=== PATIENT | male | born 1970 | race Hispanic/Latino ===

== ENCOUNTER → 2018-05-05 | Outpatient (CLI) | payer OTHER ==
--- NOTE | 2018-05-05 13:15 | Diagnostic Imaging Report ---
PROCEDURE:X-RAY ABDOMEN - KUB COMPARISON:None. INDICATIONS:LUMBAR SPINE/PELVIS PAIN FINDINGS: There is a non-obstructed bowel-gas pattern. There are no calcifications projected over the renal shadows, expected course of the ureters or bladder. A moderate volume of stool within the colon. There are no acute osseous abnormalities. The lung bases are clear. CONCLUSION: Moderate volume of stool within the colon. Nonobstructive bowel gas pattern. Lasha Miguel M.D. Dictated by: Lasha Miguel M.D. on 05/05/2018 at 13:20 Electronically approved by: Lasha Miguel M.D. on 05/05/2018 at 13:20
--- NOTE | 2018-05-05 13:23 | Diagnostic Imaging Report ---
Lumbar spine 5 views. Sacrum 2 views HISTORY: Pain. COMPARISON: None available. DISCUSSION: There are five non-rib bearing lumbar vertebral bodies. The alignment of the spine is within normal limits. No displaced fracture or compression deformity is identified. Degenerative disc disease at L4-L5 and L5-S1. Posterior endplate osteophytes at L1-L2. Mild bilateral facet arthropathy at L5-S1. Mild degenerative changes of the SI joints bilaterally. IMPRESSION: Degenerative changes predominantly involving L4-L5 and L5-S1. Mild degenerative changes of the SI joints bilaterally. Signed by: Dr. Lasha Miguel M.D. on 05/05/2018 1:19 PM
== END ==
LOC: RAD 11:05
PROVIDERS: ATTEND Internal Medicine
DX: S33.5XXA Sprain of ligaments of lumbar spine, initial encounter (principal); K59.00 Constipation, unspecified
CPT/HCPCS: 72110; 72220; 74018